=== PATIENT | male | born 1945 | race Caucasian/White ===

== ENCOUNTER → 2022-07-24 20:18 | Emergency (ER) | payer MEDICARE ==
[~2022-07-24] VITALS: Ht 175.3 cm; Wt 72.6 kg
[2022-07-24 20:18] VITALS: BP 68/53
[~2022-07-24 20:18] MED LIST: CALCIUM CHLORIDE 10% 100 MG/ML SYR IVP ONE; CODE BLUE PARTICIPANT 1 EA MISC MC ONE; DEXTROSE 50% 50 ML SYR IVP ONE; DOPamine 400 MG/D5W PREMIX 250 ML IV ONE; ETOMIDATE 20 MG/10 ML VIAL IVP ONE; INSULIN REGULAR, HUMAN 100 UNIT/ML VIAL SUBQ ONE; INTUBATION KIT MC ONE; NACL 0.9% 2,000 ML IV ONE; NOREPINEPHRINE 4 MG in DEXTROSE 5% 250 ML IV ONE; ROCURONIUM 50 MG/5 ML VIAL IV ONE; SODIUM BICARBONATE 8.4% PFS 50 MEQ/50 ML SYR IVP ONE
--- NOTE | 2022-07-24 20:18 | NUR ---
BIBA FROM HOME C/O GEN WEAK. PT FOUND WITH R 20S BP 100/60. PT BEING PACED MEDHX- STROKE WITH LT SIDE DEFICIFTS, HTN HYLD NKA
--- NOTE | 2022-07-24 20:30 | NUR ---
PT HYPOTENSIVE, HR 40 ON EXTERNAL PACER.18G SL ESTABLISHED RT A/C. LABS DRAWN
--- NOTE | 2022-07-24 20:35 | NUR ---
FLUID BOLUS BEGUN
--- NOTE | 2022-07-24 20:48 | NUR ---
DOPAMINE BEGUN AT THIS TIME
--- NOTE | 2022-07-24 20:54 | NUR ---
BP 61/20. DOPAMINE INCREASED TO 10MCG/KG/MIN
--- NOTE | 2022-07-24 21:10 | NUR ---
INTUBATED. 8FR, 24CM TO THE TEETH. OGT INSERTED. LEVOPHED BEGUN
[2022-07-24 21:24] VITALS: BP 98/43
[2022-07-24 21:30] LABS: BASOPHILS # (AUTO) 0.1 K/uL (0.00-0.22); BASOPHILS % (AUTO) 1.2 % (0.0-2.0); EOSINOPHILS # (AUTO) 0.4 K/uL (0-0.4); EOSINOPHILS % (AUTO) 7.1 % (0.0-4.0); HEMOGLOBIN 9.1 g/dL (12.0-18.0); LYMPHOCYTES # (AUTO) 0.9 K/uL (2.0-11.5); LYMPHOCYTES % (AUTO) 14.7 % (20.5-51.1); MEAN CORPUSCULAR HEMOGLOBIN 26 pg (27-31); MEAN CORPUSCULAR HGB CONC 32 g/dL (33-37); MEAN CORPUSCULAR VOLUME 81.2 fL (80-94); MONOCYTES # (AUTO) 0.5 K/uL (0.8-1.0); NEUTROPHILS # (AUTO) 4.1 K/uL (1.8-7.7); PLATELET COUNT (AUTO) 203 K/uL (140-450); RED BLOOD CELL COUNT(AUTO) 3.45 MIL/uL (4.20-6.10); RED CELL DISTRIBUTION WIDTH 17.7 % (11.6-13.7)
[2022-07-24 21:50] LABS: ALBUMIN 2.7 g/dL (3.4-5.0); ANION GAP 8.9 (8-16); ASPARTATE AMINOTRANSFERASE 42 U/L (15-37); CARBON DIOXIDE 24.4 mmol/L (21-32); CHLORIDE 108 mmol/L (98-107); CREATININE 2.6 mg/dL (0.6-1.3); GLUCOSE 221 mg/dL (74-106); SODIUM SERUM 135 mmol/L (136-145); TOTAL BILIRUBIN 0.3 mg/dL (0.0-1.0); UREA NITROGEN, BLOOD 40 mg/dL (7-18)
[2022-07-24 21:52] LABS: POTASSIUM 6.3 mmol/L (3.5-5.1)
--- NOTE | 2022-07-24 22:59 | NUR ---
[facility] AT BEDSIDE FOR TX
--- NOTE | 2022-07-24 23:37 | NUR ---
PT TX AT [facility] AT THIS TIME.
== END | disposition short-term general hospital (02) ==
LOC: MED 20:18
DX: R00.1 Bradycardia, unspecified (principal); J96.90 Respiratory failure, unspecified, unspecified whether with hypoxia or hypercapnia; E87.5 Hyperkalemia; N17.9 Acute kidney failure, unspecified; I10 Essential (primary) hypertension; E78.5 Hyperlipidemia, unspecified; Z86.73 Personal history of transient ischemic attack (TIA), and cerebral infarction without residual deficits
CPT/HCPCS: 31500; 36415; 36600; 71045; 80053; 82803; 83605; 83880; 84484; 85025; 96365; 96366; 96375; 99291; 99292; J1815; J3490; J7030; Q0092